=== PATIENT | female | born 1945 | race Caucasian/White ===

== ENCOUNTER 2023-06-21 08:44 | Inpatient (IN) | payer MEDICARE, OTHER ==
[2023-06-20 16:14] LABS: BASOPHILS # (AUTO) 0.1 X10'3 (0-0.2); BASOPHILS % (AUTO) 1.1 % (0-1); EOSINOPHILS # (AUTO) 0.2 X10'3 (0-0.9); EOSINOPHILS % (AUTO) 4.6 % (0-6); LYMPHOCYTES # (AUTO) 0.9 X10'3 (1.1-4.8); LYMPHOCYTES % (AUTO) 18.1 % (21-51); MEAN CORPUSCULAR HEMOGLOBIN 31.1 PG (27.0-31.0); MEAN CORPUSCULAR VOLUME 94.3 FL (78-98); MEAN PLATELET VOLUME 6.7 FL (7.4-10.4); MONOCYTES # (AUTO) 0.4 X10'3 (0-0.9); MONOCYTES % (AUTO) 8.6 % (2-12); NEUTROPHILS # (AUTO) 3.5 X10'3 (1.8-7.7); NEUTROPHILS % (AUTO) 67.6 % (42-75); PRE OP HEMOGLOBIN 11.5 g/dL (12.0-16.0); PRE OP PLATELET COUNT 348 X10'3 (140-440); PRE OP WHITE BLOOD COUNT 5.1 10'3 (4.8-10.8); RED BLOOD COUNT 3.71 X10'6 (4.20-5.60); RED CELL DISTRIBUTION WIDTH 13.7 % (11.5-14.5)
[2023-06-20 16:23] LABS: ALBUMIN 3.7 G/DL (3.4-5.0); ALKALINE PHOSPHATASE 43 IU/L (46-116); BLOOD UREA NITROGEN 18 MG/DL (7-18); BUN/CREATININE RATIO 24.7 (10.0-20.0); CALCIUM 9.8 MG/DL (8.5-10.1); CHLORIDE 102 MMOL/L (99-107); CREATININE 0.73 MG/DL (0.40-0.90); PRE OP ALT 15 U/L (30-65); PRE OP ANION GAP 8 (8-16); PRE OP AST 14 U/L (10-37); PRE OP BILIRUB, TOTAL 0.2 MG/DL (0.0-1.0); PRE OP GLUCOSE 98 MG/DL (70-104); PRE OP POTASSIUM 4.1 MMOL/L (3.4-5.1); PRE OP SODIUM 137 MMOL/L (135-145); TOTAL CARBON DIOXIDE 26.6 MMOL/L (24-32); TOTAL PROTEIN 7.4 G/DL (6.4-8.2); eGFR 77 ML/MIN
[~2023-06-21] VITALS: Ht 167.6 cm; Wt 61.7 kg
[2023-06-21] VITALS (28 sets, daily range): BP systolic 94–140; BP diastolic 32–93; PULSE 58–92; RESP 8–19; TEMP 97.4–98.2; O2SAT 93–100
[~2023-06-21 08:44] MED LIST: CALC600T2 PO; DULO30CA52 PO; DULO60CA65 PO; EXEM25TA5 PO; FENO43CA8 PO; FLUD0.1T PO; GABA300C PO; HYDR-3973 PO; IBUP-24 PO; IBUP1TAB11 PO; LORA10CA PO; METF-900 PO; MULT-1085 PO; PANT-47 PO; cefazolin 2gm/D5W 100mL 100 ML IV ONE; famotidine 20mg tablet PO ONE; ringers solution, lacted 1,000 ML IV SCH; tranexamic acid 650mg tablet PO ONE; vancomycin/NS 1 GM in NS 250 ML IV ONE
--- NOTE | 2023-06-21 09:05 | NUR ---
PT BROUGHT IN HER OWN MEDICATION NOT STOCKED BY PHARMACY IN ORIGINAL BOTTLE (EXEMESTANE 3 TABLETS). PACKAGED AND DELIVERED TO CECIL IN PHARMACY. ALLERGY TO PCN-SWELLING. DID RECEIVED ANCEF IV WITH NO ISSUES HER LAST SURGERY. TOTAL JOINT CHARTING: SURGERY WAS ADDED TO OR SCHEDULE AND PRE-OP'D YESTERDAY. PT STARTED HER MUPIROCIN OINTMENT YESTERDAY EVENING AND COMPLETED 3 APPLICATIONS. COMPLETED 1 HIBICLENS SHOWER. DID READ THE BOOKLET AND OTHER MATERIALS GIVEN. RIGHT DORSAL PEDALIS PULSE MARKED. CSM'S WNL EXCEPT DECREASED MOBILITY RIGHT KNEE-WEARS LOCKED KNEE BRACE AT HOME. Addendum: 06/21/23 at 1024 by Sugey Davis RN Amended: Links added.
[2023-06-21] MEDS ORDERED: tetracaine 1% (10mg/ml) pres. free inj. ONE (09:17)
[2023-06-21] MEDS ORDERED: ROPIVAcaine 0.5% (5mg/ml) 30ml vial ONE ×2 (10:39→10:57)
[2023-06-21] MEDS ORDERED: BUPIVACAINE/MELOXICAM 14 ML VIAL IL ONE (10:39)
[2023-06-21] MEDS ORDERED: MIDAZolam 1 MG/ML 5ML VIAL ONE (10:57)
[2023-06-21] MEDS ORDERED: fentaNYL/PF 50MCG/1 ML 2ML syringe IV PRN ×2 (11:25)
[2023-06-21] MEDS ORDERED: labetalol 20mg/4ml (5mg/ml) syringe IV PRN (11:25)
[2023-06-21] MEDS ORDERED: ringers solution, lacted 1,000 ML IV SCH (11:25)
[2023-06-21] MEDS ORDERED: morphine 2 MG/ML inj. syringe IV PRN (11:25)
[2023-06-21] MEDS ORDERED: hydrALAZINE 20mg/ml inj. IV PRN (11:25)
[2023-06-21] MEDS ORDERED: ondansetron/PF 4mg/2ml inj IV PRN ×2 (11:25→13:50)
[2023-06-21] MEDS ORDERED: morphine 4 MG/ML inj SYRINge IV PRN (11:25)
[2023-06-21] MEDS ORDERED: phenylephrine 10mg/ml inj. -priapism dosing ONE (11:44)
[2023-06-21] MEDS ORDERED: albumin (Human) 5% 250ml 250 ML IV ONE ×3 (11:57→12:05)
--- NOTE | 2023-06-21 12:20 | NUR ---
PT IS IN THE OR, WAS ASKED BY KUSH CAFETERIA ATTENDANT IF PATIENT HAD ANY AVERSIONS TO RECEIVING BLOOD PRODUCTS. I CALLED AND SPOKE WITH (JOE SAMANIEGO) VIA PHONE REGARDING PATIENTS BELIEF IN RECEIVING BLOOD PRODUCT TRANSFUSIONS IF NECESSARY. STATES THAT THE PATIENT SIGNED A FORM IN ADMITTING 06-20-2023 STATING HER BELIEFS THAT SHE IS AMICABLE TO RECEIVE BLOOD PRODUCTS IF NECESSARY. PATIENT'S , JOE, ALSO GAVE VERBAL PERMISSION FOR PATIENT TO RECEIVE BLOOD BYPRODUCTS IF NECESSARY.
--- NOTE | 2023-06-21 13:45 | NUR ---
Received from OR via HOSPITAL BED, accompanied by Anesthesiologist DR PIÑA and report given by Anesthesiologist. PT IS GROGGY BUT RESPONDS TO VERBAL STIMULI AND FOLLOWS COMMANDS. PT PLACED ON BEDSIDE MONITOR. PT IS SB WITH RATE IN HIGH 50'S, PT BP IS 90'S/40'S, ANESTHESIA ORDERED 500 ML ALBUMIN IF BP REMAINS LOW. PT HAS 20G PIV TO LT FA WITH LR INFUSING ORDERED. PT HAS DRSG TO RT KNEE THAT IS CDI, KNEE WRAP IN PLACE WITH ICE PACK IN PLACE WELL. PT UNABLE TO MOVE LE'S D/T SPINAL ANESTHESIA. PT HAS FEELING AT DERMATOME L2 LEVEL AT THIS TIME. PALPABLE BILAT DORSALIS PEDIS PULSES PRESENT. PT DENIES PAIN AT THIS TIME, WILL CONTINUE TO ASSESS
[2023-06-21] MEDS ORDERED: oxyCODONE IR 5mg (immed. release) tablet PO PRN (13:50)
[2023-06-21] MEDS ORDERED: IBUPROFEN PO PRN (13:50)
[2023-06-21] MEDS ORDERED: ibuprofen 200mg tablet PO PRN (13:50)
[2023-06-21] MEDS ORDERED: acetaminophen 325mg tablet PO PRN (13:50)
[2023-06-21] MEDS ORDERED: diphenhydrAMINE 25mg capsule PO PRN ×2 (13:50)
[2023-06-21] MEDS ORDERED: DIPHENHYDRAMINE PO PRN (13:50)
[2023-06-21] MEDS ORDERED: magnesium hydroxide 30ml (MOM) UD suspension PO PRN (13:50)
[2023-06-21] MEDS ORDERED: naloxone 0.4 mg/ml inj IV PRN (13:50)
[2023-06-21] MEDS ORDERED: HYDROmorphone inj. 0.5 MG/0.5 ML DISP.SYRIN IV PRN (13:50)
[2023-06-21] MEDS ORDERED: HYDROcodone/acetaminophen 10/325mg tab PO PRN (13:50)
[2023-06-21] MEDS ORDERED: bisacodyl 10mg suppository rectal RC PRN (13:50)
[2023-06-21 14:08] LABS: BASOPHILS,BODY FLUID 0 %; BF WBC COUNT 300 /CU MM (0-1000); BFAPPEAR BLOODY; BFCOLOR RED; BFSOURCE OTHER; BFVOLUME 4 ML; EOSINOPHILS,BODY FLUID 0 %; LYMPHOCYTES,BODY FLUID 77 %; MONOCYTES,BODY FLUID 0 %
[2023-06-21] MEDS: acetaminophen 325mg tablet PO SCH ×2 (14:37→20:56)
--- NOTE | 2023-06-21 16:00 | NUR ---
Patient in room PAS IN 901. I have received report from Michelle BRYAN in recovery and had the opportunity to ask questions and assume patient care.
--- NOTE | 2023-06-21 16:00 | NUR ---
CALL PLACED TO PHYSICAL THERAPY TO INQUIRE ABOUT CMP MACHINE THAT HAS BEEN ORDERED. PHYSICAL THERAPY STATED TO SEND A PAGE TO THE [place] [employer] AND THEY WILL BRING THE MACHINE TO PT ROOM AND SET UP. PAGE SENT AND NURSE NOTIFIED.
--- NOTE | 2023-06-21 16:10 | NUR ---
PATIENT HAS MET ALL CRITERIA FOR TRANSFER TO THE ORTHO FLOOR. VSS. DRESSINGS INTACT. BED LOW, CALL LIGHT PRESENT AND 2 RAILS UP. NURSE PRESENT TO ACCEPT CARE OF PATIENT AND REPORT HAS BEEN CALLED TO [facility] [place]. ALL QUESTIONS ANSWERED TO ACCEPTING NURSE.
[2023-06-21] MEDS: potassium cl 20mEq in 1/2 NS 1,000 ML IV SCH ×2 (16:45→21:50)
--- NOTE | 2023-06-21 18:35 | NUR ---
Problems reprioritized. Patient report given, questions answered & plan of care reviewed with Annette Bryant RN.
[2023-06-21] MEDS ORDERED: vancomycin/NS 1 GM ADD-VANTAGE 250 ML IV SCH (20:00)
[2023-06-21] MEDS: ceFAZolin/D5W- 1GM premix 50 ML IV SCH (20:54)
[2023-06-21] MEDS: oxyCODONE IR 5mg (immed. release) tablet PO PRN (20:55)
[2023-06-21] MEDS: loratadine 10mg tablet PO SCH (20:57)
[2023-06-21] MEDS: gabapentin 300mg capsule PO SCH (20:57)
[2023-06-21] MEDS: pantoprazole 40mg Tablet.DR PO SCH (20:57)
[2023-06-21] MEDS: sennosides 8.6mg tablet PO SCH (21:03)
[2023-06-22] VITALS (10 sets, daily range): BP systolic 94–114; BP diastolic 37–48; PULSE 85–106; RESP 15–18; TEMP 97.9–100.7; O2SAT 93–96
[2023-06-22] MEDS: ceFAZolin/D5W- 1GM premix 50 ML IV SCH (01:00)
[2023-06-22] MEDS: acetaminophen 325mg tablet PO SCH ×5 (03:28→20:38)
[2023-06-22] MEDS: oxyCODONE IR 5mg (immed. release) tablet PO PRN ×3 (03:28→20:37)
--- NOTE | 2023-06-22 03:30 | NUR ---
PATIENT C/O SEVERE LEG PAIN WHILE WITH CPM. CPM DISCONTINUED AND WAS GIVEN PAIN MEDICATIONS.
[2023-06-22] MEDS: potassium cl 20mEq in 1/2 NS 1,000 ML IV SCH ×3 (03:33→21:50)
[2023-06-22 06:26] LABS: BASOPHILS % (AUTO) 0.7 % (0-1); EOSINOPHILS # (AUTO) 0.1 X10'3 (0-0.9); EOSINOPHILS % (AUTO) 2.4 % (0-6); LYMPHOCYTES # (AUTO) 1.1 X10'3 (1.1-4.8); LYMPHOCYTES % (AUTO) 18.5 % (21-51); MEAN CORPUSCULAR VOLUME 94.2 FL (78-98); MEAN PLATELET VOLUME 6.7 FL (7.4-10.4); MONOCYTES # (AUTO) 0.6 X10'3 (0-0.9); MONOCYTES % (AUTO) 10.5 % (2-12); NEUTROPHILS # (AUTO) 4.1 X10'3 (1.8-7.7); NEUTROPHILS % (AUTO) 67.9 % (42-75); PLATELET COUNT 218 X10'3 (140-440); RED BLOOD COUNT 1.99 X10'6 (4.20-5.60); RED CELL DISTRIBUTION WIDTH 13.7 % (11.5-14.5)
[2023-06-22 06:32] LABS: HEMATOCRIT 18.8 % (35.0-45.0); HEMOGLOBIN 6.2 g/dl (12.0-16.0)
[2023-06-22 06:44] LABS: ANION GAP 8 (8-16); CHLORIDE 108 MMOL/L (99-107); POTASSIUM 3.7 MMOL/L (3.5-5.1); SODIUM 140 MMOL/L (135-145); TOTAL CARBON DIOXIDE 23.8 MMOL/L (24-32)
--- NOTE | 2023-06-22 06:45 | NUR ---
CALLED [facility]LA[facility]UC[facility] AND WAS INFORMED OF CRITICAL HGB 6.2 AND HCT 18.8 WITH ORDERS FOR BLOOD TRANSFUSION 1 UNIT OF PRBC TYPE AND CROSS 2 UNITS AND REPEAT HEMOGRAM AFTER I UNIT AND CALL RESULTS TO .
--- NOTE | 2023-06-22 06:52 | NUR ---
Patient in room ORTHO 4014. I have received report from RANDI Springer and had the opportunity to ask questions and assume patient care.
[2023-06-22] MEDS ORDERED: CALCIUM CARBONATE PO SCH (08:00)
[2023-06-22] MEDS ORDERED: non-formulary drug (Duloxetine HCl 60 MG) PO SCH (08:00)
[2023-06-22] MEDS: EXEMESTANE 25 MG PO SCH (08:00)
[2023-06-22] MEDS: duloxetine 30mg CAPSULE.DR PO SCH (08:18)
[2023-06-22] MEDS: pantoprazole 40mg Tablet.DR PO SCH ×2 (08:18→20:38)
[2023-06-22] MEDS: gabapentin 300mg capsule PO SCH ×3 (08:18→20:38)
[2023-06-22] MEDS: multivitamins, therapeutics tablet PO SCH (08:19)
[2023-06-22] MEDS: fludrocortisone acetate 0.1mg tablet PO SCH (08:20)
[2023-06-22] MEDS: aspirin 325mg tablet PO SCH ×2 (08:20→15:35)
[2023-06-22] MEDS: fenofibrate 48mg tablet PO SCH (08:20)
[2023-06-22] MEDS: HYDROmorphone 1 mg/ml syringe IV PRN ×2 (08:28→14:36)
[2023-06-22 08:45] LABS: NEUTROPHILS,BODY FLUID 23 %
--- NOTE | 2023-06-22 13:38 | NUR ---
Joint surgery: RD attempted to see pt at bedside however pt busy with RN and student at time of visit attempt. Due to short staffing placed high protein nutrition education handout in pt's chart with RD contact information. Will remain available for any nutrition questions or concerns. Addendum: 06/22/23 at [address] Amended: Links added.
--- NOTE | 2023-06-22 13:48 | NUR ---
Blood transfusion of 1 unit B positive was initiated at 1326 with Student RN Nelsy from [facility]. Protocol was followed and [facility] RN and Student remained at bedside for first 15 minutes and provided pt education of possible reaction. Pt tolerated first 15 minutes without incident. 15 min vitals entered. Instructor and Student RN will not be on the floor for 1H vitals. Primary RN made aware that they will need to resume monitoring of transfusion. Pt has call light in reach
--- NOTE | 2023-06-22 18:40 | NUR ---
Problems reprioritized. Patient report given, questions answered & plan of care reviewed with RANDI Springer.
[2023-06-22] MEDS: loratadine 10mg tablet PO SCH (20:38)
[2023-06-22] MEDS: sennosides 8.6mg tablet PO SCH (20:39)
[2023-06-22 21:27] LABS: HEMOGLOBIN 7.8 g/dl (12.0-16.0); MEAN CORPUSCULAR HEMOGLOBIN 30.8 PG (27.0-31.0); MEAN CORPUSCULAR VOLUME 90.5 FL (78-98); MEAN PLATELET VOLUME 6.8 FL (7.4-10.4); PLATELET COUNT 212 X10'3 (140-440); RED BLOOD COUNT 2.54 X10'6 (4.20-5.60); RED CELL DISTRIBUTION WIDTH 14.4 % (11.5-14.5); WHITE BLOOD COUNT 7.2 X10'3 (4.5-11.0)
[2023-06-23] MEDS: potassium cl 20mEq in 1/2 NS 1,000 ML IV SCH (01:30)
[2023-06-23] MEDS: acetaminophen 325mg tablet PO SCH ×2 (02:00→08:52)
[2023-06-23 06:00] VITALS: BP 139/42; PULSE 94; RESP 16; TEMP 97.8; O2SAT 96
[2023-06-23] MEDS: oxyCODONE IR 5mg (immed. release) tablet PO PRN ×4 (06:00→21:18)
[2023-06-23 06:30] LABS: BASOPHILS % (AUTO) 0.4 % (0-1); EOSINOPHILS # (AUTO) 0.5 X10'3 (0-0.9); HEMATOCRIT 22.9 % (35.0-45.0); HEMOGLOBIN 7.9 g/dl (12.0-16.0); LYMPHOCYTES # (AUTO) 0.7 X10'3 (1.1-4.8); LYMPHOCYTES % (AUTO) 8.5 % (21-51); MEAN CORPUSCULAR HEMOGLOBIN 31.3 PG (27.0-31.0); MEAN CORPUSCULAR HGB CONC 34.5 g/dL (33.0-36.5); MEAN CORPUSCULAR VOLUME 90.6 FL (78-98); MONOCYTES # (AUTO) 0.9 X10'3 (0-0.9); MONOCYTES % (AUTO) 11.1 % (2-12); NEUTROPHILS # (AUTO) 5.9 X10'3 (1.8-7.7); PLATELET COUNT 215 X10'3 (140-440); RED BLOOD COUNT 2.53 X10'6 (4.20-5.60); RED CELL DISTRIBUTION WIDTH 14.7 % (11.5-14.5)
--- NOTE | 2023-06-23 06:45 | NUR ---
Problems reprioritized. Patient report given, questions answered & plan of care reviewed with STEVE BRYAN.
--- NOTE | 2023-06-23 06:54 | NUR ---
Patient in room ORTHO 4014. I have received report from RANDI Springer and had the opportunity to ask questions and assume patient care.
[2023-06-23] MEDS: EXEMESTANE 25 MG PO SCH (08:00)
[2023-06-23 08:43] VITALS: RESP 16
[2023-06-23] MEDS: multivitamins, therapeutics tablet PO SCH (08:50)
[2023-06-23] MEDS: pantoprazole 40mg Tablet.DR PO SCH ×2 (08:50→21:38)
[2023-06-23] MEDS: fludrocortisone acetate 0.1mg tablet PO SCH (08:50)
[2023-06-23] MEDS: duloxetine 30mg CAPSULE.DR PO SCH (08:50)
[2023-06-23] MEDS: aspirin 325mg tablet PO SCH (08:50)
[2023-06-23] MEDS: gabapentin 300mg capsule PO SCH ×3 (08:50→21:39)
[2023-06-23] MEDS: fenofibrate 48mg tablet PO SCH (08:50)
[2023-06-23] MEDS ORDERED: acetaminophen 325mg tablet PO PRN (13:50)
[2023-06-23 18:00] VITALS: BP 116/73; PULSE 66; RESP 16; TEMP 97.8; O2SAT 96
--- NOTE | 2023-06-23 18:30 | NUR ---
Patient in room ORTHO 4014. I have received report from STEVE BRYAN and had the opportunity to ask questions and assume patient care.
[2023-06-23 20:00] VITALS: RESP 18
[2023-06-23] MEDS: loratadine 10mg tablet PO SCH (21:38)
[2023-06-23] MEDS: sennosides 8.6mg tablet PO SCH (21:39)
[2023-06-23 22:00] VITALS: BP 108/50; PULSE 93; RESP 16; TEMP 97.5; O2SAT 96
[2023-06-24] MEDS: oxyCODONE IR 5mg (immed. release) tablet PO PRN (05:25)
[2023-06-24 06:00] VITALS: BP 106/51; PULSE 95; RESP 16; TEMP 97; O2SAT 94
--- NOTE | 2023-06-24 06:52 | NUR ---
I have received report from RANDI Arambula and had the opportunity to ask questions and assume patient care. NO distress at this time. Addendum: 06/24/23 at 0653 by Kristie Issa LVN, LVN RANDI Rivas
[2023-06-24 07:22] LABS: BASOPHILS % (AUTO) 0.5 % (0-1); EOSINOPHILS # (AUTO) 0.4 X10'3 (0-0.9); EOSINOPHILS % (AUTO) 5.4 % (0-6); HEMOGLOBIN 8.1 g/dl (12.0-16.0); LYMPHOCYTES % (AUTO) 11.9 % (21-51); MEAN CORPUSCULAR HEMOGLOBIN 30.9 PG (27.0-31.0); MEAN CORPUSCULAR HGB CONC 33.8 g/dL (33.0-36.5); MEAN CORPUSCULAR VOLUME 91.5 FL (78-98); MEAN PLATELET VOLUME 6.9 FL (7.4-10.4); MONOCYTES # (AUTO) 0.8 X10'3 (0-0.9); MONOCYTES % (AUTO) 9.9 % (2-12); NEUTROPHILS # (AUTO) 5.7 X10'3 (1.8-7.7); NEUTROPHILS % (AUTO) 72.3 % (42-75); PLATELET COUNT 236 X10'3 (140-440); RED BLOOD COUNT 2.62 X10'6 (4.20-5.60); RED CELL DISTRIBUTION WIDTH 14.8 % (11.5-14.5)
[2023-06-24 08:00] VITALS: RESP 18; O2SAT 94
[2023-06-24] MEDS: EXEMESTANE 25 MG PO SCH (08:00)
[2023-06-24] MEDS: fludrocortisone acetate 0.1mg tablet PO SCH (08:43)
[2023-06-24] MEDS: multivitamins, therapeutics tablet PO SCH (08:44)
[2023-06-24] MEDS: gabapentin 300mg capsule PO SCH (08:44)
[2023-06-24] MEDS: pantoprazole 40mg Tablet.DR PO SCH (08:44)
[2023-06-24] MEDS: fenofibrate 48mg tablet PO SCH (08:44)
[2023-06-24] MEDS: duloxetine 30mg CAPSULE.DR PO SCH (08:44)
[2023-06-24] MEDS: aspirin 325mg tablet PO SCH (08:49)
[2023-06-24 10:00] VITALS: BP 98/50; PULSE 62; RESP 15; TEMP 98.6; O2SAT 97
--- NOTE | 2023-06-24 13:00 | NUR ---
MAKE UP GIRL documentation: I have reviewed and agree with all interventions, assessments performed and documented by Kristie Barton LVN.
--- NOTE | 2023-06-24 14:50 | NUR ---
Patient discharged stable. Understood post op instructions provided/ exercises. Paperwork signed and obtained to pt. Spouse picked pt up. IV d/c'd, cannula intact. Notified the patient to watch for shadowing on dressing and s/sx of infection. Belongings with patient upon d/c.
== END 2023-06-24 14:44 | disposition home or self-care (01) | DRG 468 ==
LOC: PAS IN 08:44 → ORTHO 4S 16:20
PROVIDERS: ADMIT Orthopaedic Surgery; ATTEND Orthopaedic Surgery
PROC: 0SRC0J9 Replacement of Right Knee Joint with Synthetic Substitute, Cemented, Open Approach (ICD-10-PCS; 2023-06-21)
PROC: 3E0T3BZ Introduction of Anesthetic Agent into Peripheral Nerves and Plexi, Percutaneous Approach (ICD-10-PCS; 2023-06-21)
PROC: 3E0T33Z Introduction of Anti-inflammatory into Peripheral Nerves and Plexi, Percutaneous Approach (ICD-10-PCS; 2023-06-21)
PROC: 0SPC0JZ Removal of Synthetic Substitute from Right Knee Joint, Open Approach (ICD-10-PCS; principal; 2023-06-21 10:40)
PROC: 30233N1 Transfusion of Nonautologous Red Blood Cells into Peripheral Vein, Percutaneous Approach (ICD-10-PCS; 2023-06-22)
DX: T84.022A Instability of internal right knee prosthesis, initial encounter (principal); M65.861 Other synovitis and tenosynovitis, right lower leg; D64.9 Anemia, unspecified; Y83.1 Surgical operation with implant of artificial internal device as the cause of abnormal reaction of the patient, or of later complication, without mention of misadventure at the time of the procedure; Y92.89 Other specified places as the place of occurrence of the external cause
CPT/HCPCS: 36415; 36430; 73564; 80051; 80053; 82948; 85025; 85027; 86885; 86900; 86901; 86920; 87081; 89051; 97110; 97116; 97161; 97530; A4215; A4615; A7000; C1713; C1758; C1776; G0378; J0690; J1170; J2250; J2370; J2795; J3370; J3480; J3490; J7030; J7120; P9016; P9045